=== PATIENT | female | born 1960 | race Caucasian/White ===

== ENCOUNTER 2017-04-12 08:02 | Day surgery (SDC) | payer BC, MEDICAID ==
[~2017-04-12 08:02] MED LIST: Lactated Ringers 1,000 ML IV SCH; Sodium Chloride 0.9% 10 ML Syringe FLUSH PRN; Sodium Chloride 0.9% 2.5 ML Syringe FLUSH PRN
--- NOTE | 2017-04-12 08:39 | PCM.PREANE ---
Preanesthetic Assessment - Anesthesia/Transfusion/Family Hx Anesthesia History: Prior Anesthesia Without Reaction Family History of Anesthesia Reaction: No Transfusion History: No Prior Transfusion(s) Intubation History: Unknown - Review of Systems General: No Symptoms Pulmonary: No Symptoms Cardiovascular: No Symptoms Gastrointestinal: No Symptoms Neurological: No Symptoms Other: Reports: None - Physical Assessment O2 Sat by Pulse Oximetry: 95 Respiratory Rate: 16 Vital Signs: Last Vital Signs Temp 36.6 C 04/12/17 08:26 Pulse 95 04/12/17 08:26 Resp 16 04/12/17 08:26 BP 134/75 04/12/17 08:26 Pulse Ox 95 04/12/17 08:26 Height: 1.67 m Weight: 102.965 kg ASA Class: 3 Mental Status: Alert & Oriented x3 Airway Class: Mallampati = 2 Dentition: Reports: Normal Dentition Thyro-Mental Finger Breadths: 3 Mouth Opening Finger Breadths: 3 ROM/Head Extension: Full Lungs: Clear to Auscultation, Normal Respiratory Effort Cardiovascular: Regular Rate, Regular Rhythm - Allergies Allergies/Adverse Reactions: Allergies Allergy/AdvReac Type Severity Reaction Status Date / Time No Known Allergies Allergy Verified 04/08/17 16:08 - Blood Blood Available: No - Anesthesia Plan Pre-Op Medication Ordered: None - Acknowledgements Anesthesia Type Planned: General Anesthesia Pt an Appropriate Candidate for the Planned Anesthesia: Yes Alternatives and Risks of Anesthesia Discussed w Pt/Guardian: Yes Pt/Guardian Understands and Agrees with Anesthesia Plan: Yes PreAnesthesia Questionnaire HEENT History: Reports: Impaired Vision Other HEENT History: wears glasses Cardiovascular History: Reports: Angina, High Cholesterol, Hypertension Other Cardiovascular History: as given nitroglycerine by a Doctor but was told that "everything is alright" Respiratory History: Reports: None Gastrointestinal History: Reports: Chronic Diarrhea Genitourinary History: Reports: None ICT BUSINESS DEVELOPMENT MANAGER History: Reports: None Other OB/BYN History: states is post-menopausal Musculoskeletal History: Reports: Arthritis, Back Pain, Chronic, Fibromyalgia, Neck Pain, Chronic Other Musculoskeletal History: states arthritis both knees, chronic back pain Neurological History: Reports: None Psychiatric History: Reports: Anxiety, Depression Endocrine/Metabolic History: Reports: Diabetes, Type II, Hypothyroidism, Obesity /BMI 30+ Other Endocrine/Metabolic History: pre-diabetic Hematologic History: Reports: None Other Hematologic History: refuses blood transfusions for tenriism reasons Immunologic History: Reports: None Oncologic (Cancer) History: Reports: None Dermatologic History: Reports: None - Infectious Disease History Infectious Disease History: Reports: Chicken Pox - Past Surgical History Head Surgeries/Procedures: Reports: None Musculoskeletal Surgical History: Reports: Knee Replacement Other Musculoskeletal Surgeries/Procedures:: bilateral - SUBSTANCE USE Smoking Status *Q: Never Smoker Second Hand Smoke Exposure: No Recreational Drug Use History: No - HOME MEDS Home Medications: Home Meds Levothyroxine Sodium [Unithroid] 25 mcg PO DAILY 04/23/15 [History] PARoxetine HCl [Paroxetine HCl] 10 mg PO DAILY 04/23/15 [History] Nitroglycerin [Nitrostat] 0.4 mg SL ASDIRECTED PRN 07/29/15 [History] metFORMIN [Glucophage] 1,000 mg PO BIDMEALS 07/29/15 [History] Aloevera 1 tab PO BID 12/26/15 [History] Magnesium 133 mg PO DAILY 12/26/15 [History] Multivitamin [Daily Multiple Vitamin] 1 tab PO DAILY 12/26/15 [History] Vit D3 & K/Berberine HCl/Hops [Ostera] 1 tab PO DAILY 12/26/15 [History] atorvaSTATin Calcium [Atorvastatin Calcium] 40 mg PO DAILY 12/26/15 [History] Celecoxib [CeleBREX] 200 mg PO DAILY #45 cap 01/01/16 [Rx] Aspirin [Adult Low Dose Aspirin EC] 81 mg PO DAILY 04/08/17 [History] Bisoprolol Fumarate/HCTZ [Ziac 5-6.25 MG] 1 tab PO DAILY 04/08/17 [History] Cinnamon Bark [Cinnamon] 500 mg PO DAILY 04/08/17 [History] Potassium 99 mg PO DAILY 04/08/17 [History] Ubidecarenone [Co Q-10] 100 mg PO DAILY 04/08/17 [History] Vitamin E 400 unit PO DAILY 04/08/17 [History] - CURRENT (IN HOUSE) MEDS Current Meds: Current Medications Lactated Ringer's (Ringers, Lactated) 1,000 mls @ 100 mls/hr IV ASDIRECTED RASHARD Last Admin: 04/12/17 08:28 Dose: 100 mls/hr Sodium Chloride (Saline Flush) 10 ml FLUSH ASDIRECTED PRN PRN Reason: Keep Vein Open Sodium Chloride (Saline Flush) 2.5 ml FLUSH ASDIRECTED PRN PRN Reason: Keep Vein Open
[2017-04-12] MEDS ORDERED: Midazolam 1 MG/ML 2 ML SDV ONE (10:24)
[2017-04-12] MEDS ORDERED: fentaNYL 100 MCG/2 ML SDV ONE (10:24)
[2017-04-12] MEDS ORDERED: Propofol 200 MG/20 ML SDV ONE (10:24)
[2017-04-12] MEDS ORDERED: Lidocaine 2% 5 ML SDV ONE (10:24)
[2017-04-12] MEDS ORDERED: fentaNYL 100 MCG/2 ML SDV IVPUSH PRN (12:29)
--- NOTE | 2017-04-12 12:49 | PCM.OPNOTE ---
- General Post-Op/Procedure Note Date of Surgery/Procedure: 04/12/17 Operative Procedure(s): Operative hysteroscopy/polypectomy/D&C Findings: 2.8 cm fundal uterine polyp Pre Op Diagnosis: Abnormal uterine bleeding. Endometrial polyp Post-Op Diagnosis: Same Anesthesia Technique: General LMA Primary Surgeon: Kristine Alarcon Pathology: polyp endometrial curretings Fluid Replacement, Intraop: 1,300 EBL in mLs: 10 Complications: none known Condition: Good Free Text/Narrative:: Dictation [id number]
--- NOTE | 2017-04-12 13:11 | PCM.POSTAN ---
POST ANESTHESIA ASSESSMENT - MENTAL STATUS Mental Status: Alert, Oriented - RESPIRATORY Respiratory Status: Respiratory Rate WNL, Airway Patent, O2 Saturation Stable - CARDIOVASCULAR CV Status: Pulse Rate WNL, Blood Pressure Stable - GASTROINTESTINAL GI Status: No Symptoms - PAIN Pain Score: 3 - POST OP HYDRATION Hydration Status: Adequate & Stable - OBSERVATIONS Free Text/Narrative:: no anesthesia problems
[2017-04-12 14:30] VITALS: BP 124/60
--- NOTE | 2017-04-12 21:02 | OR ---
SURGEON: Kristine Alarcon M.D. DATE OF PROCEDURE: 04/12/2017 PREOPERATIVE DIAGNOSES: 1. Abnormal uterine bleeding. 2. Endometrial polyp. POSTOPERATIVE DIAGNOSES: 1. Abnormal uterine bleeding. 2. Endometrial polyp. PROCEDURE: 1. Operative hysteroscopy with endometrial polypectomy. 2. Dilation and curettage. PRIMARY SURGEON: Kristine Alarcon M.D. ANESTHESIA: General LMA. ESTIMATED BLOOD LOSS: 10 mL. FLUIDS: 1500 mL crystalloid. COMPLICATIONS: None known. FINDINGS: Approximately 2.8 cm right fundal uterine polyp. DISPOSITION: The patient to PACU. SPECIMENS: To pathology. INDICATIONS: Annika is a 56-year-old female who has had ongoing difficulties with menorrhagia. During evaluation, endometrial biopsy is benign. Sonohysterogram reveals approximately 2.8 cm polypoid lesion. She would like to proceed with surgical intervention to remove the polyp. Risks of the procedure have been discussed and proper consent was obtained. PROCEDURE IN DETAIL: The patient was taken to the OR, where she underwent general LMA. She was placed modified dorsal lithotomy position and was prepped and draped in the usual sterile fashion. SCDs to the lower extremities. Bladder was drained. Time-out was performed. A speculum was introduced in the vagina. The posterior lip of the cervix was grasped with an Allis clamp. Cervix was gently dilated to 6 mm. MyoSure hysteroscope was now gently introduced using normal saline as distention media and was able to visualize the uterine cavity. There was a distinct polypoid lesion arising from the right fundal region near the right ostia. I was able to visualize ostia with mobilizing the hysteroscope around the polyp. No other lesions were visualized. MyoSure device was now introduced. Polypectomy was not performed. The polyp was resected until the tissue was flush with the remainder of the endometrium. Another area of thickening along the endometrium on the left side was gently resected as well. The uterine cavity appeared normal. At this point, photographs were taken. Hysteroscope was now removed. A gentle curettage was performed and specimen to pathology. Fluid deficit was 365 mL of normal saline. All instruments were removed from the vagina. Sponge and instrument counts were correct x2. The patient tolerated the procedure well. She will go to the PACU in stable condition. Specimens to pathology. PRASHANT / MIROSLAVA /[id number] MTDD
== END 2017-04-12 13:10 | disposition home or self-care (01) ==
LOC: MW.SDS 08:02
PROVIDERS: ATTEND Obstetrics & Gynecology
DX: N84.0 Polyp of corpus uteri (principal); D39.0 Neoplasm of uncertain behavior of uterus; E03.9 Hypothyroidism, unspecified; E11.9 Type 2 diabetes mellitus without complications; E78.00 Pure hypercholesterolemia, unspecified; I10 Essential (primary) hypertension; F41.8 Other specified anxiety disorders; M19.90 Unspecified osteoarthritis, unspecified site; E66.9 Obesity, unspecified; Z68.30 Body mass index [BMI] 30.0-30.9, adult; Z79.899 Other long term (current) drug therapy; Z79.84 Long term (current) use of oral hypoglycemic drugs; Z79.82 Long term (current) use of aspirin
CPT/HCPCS: 36415; 58558; 84703; 85027; J2250; J3010; J7120; 00952; 88305; J2704

== ENCOUNTER 2021-10-01 06:49 | Day surgery (SDC) | payer OTHER ==
[2021-10-01] MEDS ORDERED: Octyl 2-Cyanoacrylate 1 Tube ONE (07:14)
[2021-10-01] MEDS ORDERED: Bupivacaine 0.5% 10 ML SDV ONE ×2 (07:14→08:37)
[2021-10-01] MEDS ORDERED: Propofol 200 MG/20 ML SDV ONE ×2 (07:17→08:27)
[2021-10-01] MEDS ORDERED: fentaNYL 100 MCG/2 ML SDV ONE (07:17)
[2021-10-01] MEDS ORDERED: Ondansetron 4 MG/2 ML SDV ONE (07:17)
[2021-10-01] MEDS ORDERED: Midazolam 1 MG/ML 2 ML SDV ONE (07:17)
[2021-10-01] MEDS ORDERED: Ondansetron 4 MG/2 ML SDV IVPUSH PRN (07:36)
[2021-10-01] MEDS ORDERED: Metoclopramide 10 MG/2 ML SDV IVPUSH PRN (07:36)
[2021-10-01] MEDS ORDERED: fentaNYL 50 MCG/ML SDV IVPUSH PRN (07:36)
[2021-10-01] MEDS ORDERED: Albuterol 0.083% 2.5 MG/3 ML Neb Soln NEB PRN (07:36)
[2021-10-01] MEDS ORDERED: Naloxone 0.4 MG/ML SDV IVPUSH PRN (07:36)
[2021-10-01] MEDS ORDERED: HYDROmorphone 1 MG/ML Syringe IVPUSH PRN (07:36)
[2021-10-01] MEDS ORDERED: Morphine 4 MG/ML VIAL IVPUSH PRN (07:36)
[2021-10-01] MEDS ORDERED: Lactated Ringers 1,000 ML IV SCH (08:00)
[2021-10-01] MEDS ORDERED: ceFAZolin 1 GM Vial ONE (08:09)
[2021-10-01 11:31] VITALS: BP 109/53; PULSE 77
== END 2021-10-01 09:48 | disposition home or self-care (01) ==
LOC: MW.SDS 06:49
PROVIDERS: ATTEND Surgery
DX: D17.1 Benign lipomatous neoplasm of skin and subcutaneous tissue of trunk (principal); F41.8 Other specified anxiety disorders; E11.9 Type 2 diabetes mellitus without complications; K21.9 Gastro-esophageal reflux disease without esophagitis; M10.9 Gout, unspecified; I10 Essential (primary) hypertension; E78.00 Pure hypercholesterolemia, unspecified; E66.9 Obesity, unspecified; E03.9 Hypothyroidism, unspecified; Z79.82 Long term (current) use of aspirin; Z79.899 Other long term (current) drug therapy; Z79.84 Long term (current) use of oral hypoglycemic drugs; Z79.890 Hormone replacement therapy; Z98.890 Other specified postprocedural states; Z68.35 Body mass index [BMI] 35.0-35.9, adult
CPT/HCPCS: 21931; 82947; A9270; J0690; J2250; J2704; J3010; J3490; J7120; 00300; J2405